=== PATIENT | female | born 1995 | race Two or more races ===

== ENCOUNTER 2018-09-01 12:58 | Emergency (ER) | payer OTHER ==
[2018-09-01] MEDS ORDERED: ONDANSETRON HCL INJ/PF 4 MG/2 ML SDV IV ONE (13:23)
--- NOTE | 2018-09-01 13:23 | ER Document Report ---
ED Medical Screen (RME) - General Chief Complaint: Abdominal Pain Stated Complaint: ABDOMINAL PAIN,NAUSEA,VOMITING Time Seen by Provider: 09/01/18 13:08 TRAVEL OUTSIDE OF THE [place] IN LAST 30 DAYS: No - HPI Notes: 09/01/18 13:22 Nausea vomiting diarrhea with upper epigastric pain - Related Data Allergies/Adverse Reactions: No Known Allergies Allergy (Verified 09/01/18 13:14) Past Medical History - Social History Frequency of alcohol use: None Drug Abuse: None Renal/ Medical History: Denies: Hx Peritoneal Dialysis Review of Systems - Review of Systems Gastrointestinal: Abdominal pain, Diarrhea, Nausea, Vomiting Physical Exam - Vital signs Vitals: Temp Pulse Resp BP Pulse Ox 99.2 F 130 H 14 125/97 H 100 09/01/18 13:07 09/01/18 13:07 09/01/18 13:07 09/01/18 13:07 09/01/18 13:07 - Respiratory Respiratory status: No respiratory distress Chest status: Nontender Breath sounds: Normal Chest palpation: Normal - Cardiovascular Rhythm: Tachycardia Course - Vital Signs Vital signs: Temp Pulse Resp BP Pulse Ox 99.2 F 128 H 14 125/97 H 100 09/01/18 13:07 09/01/18 13:18 09/01/18 13:07 09/01/18 13:07 09/01/18 13:18
[2018-09-01] MEDS: RINGERS SOLUTION,LACTATED 1,000 ML IV PRN ×2 (13:43→15:09)
[2018-09-01 14:07] LABS: APPEARANCE,URINE CLOUDY; BILIRUBIN,URINE NEGATIVE (NEGATIVE); COLOR,URINE YELLOW; GLUCOSE, URINE NEGATIVE (NEGATIVE); KETONES,URINE 80 mg/dL (NEGATIVE); LEUKOCYTE ESTERASE,URINE MODERATE (NEGATIVE); NITRITE,URINE NEGATIVE (NEGATIVE); PROTEIN,URINE NEGATIVE (NEGATIVE); URINE SPECIFIC GRAVITY 1.028
--- NOTE | 2018-09-01 14:32 | ER Document Report ---
ED General - General Chief Complaint: Abdominal Pain Stated Complaint: ABDOMINAL PAIN,NAUSEA,VOMITING Time Seen by Provider: 09/01/18 13:08 Mode of Arrival: Ambulatory Information source: Patient Notes: This is a 23-year-old female with no significant medical problems who presents to the emergency room with nausea, vomiting and abdominal pain. Patient does report subjective fever. She denies any diarrhea. She denies any vaginal discharge. TRAVEL OUTSIDE OF THE [place] IN LAST 30 DAYS: No - HPI Onset: This afternoon Onset/Duration: Gradual Quality of pain: Dull Severity: Mild Pain Level: 1 Associated symptoms: Chills, Fever, Nausea, Vomiting Exacerbated by: Denies Relieved by: Denies Similar symptoms previously: No Recently seen / treated by doctor: No - Related Data Allergies/Adverse Reactions: No Known Allergies Allergy (Verified 09/01/18 13:14) Past Medical History - General Information source: Patient - Social History Smoking Status: Never Smoker Cigarette use (# per day): No Chew tobacco use (# tins/day): No Frequency of alcohol use: None Drug Abuse: None Lives with: Family Family History: None Patient has suicidal ideation: No Patient has homicidal ideation: No - Medical History Medical History: Negative Renal/ Medical History: Denies: Hx Peritoneal Dialysis Surgical Hx: Negative Review of Systems - Review of Systems Constitutional: Chills, Fever EENT: No symptoms reported Cardiovascular: No symptoms reported Respiratory: No symptoms reported Gastrointestinal: Abdominal pain, Nausea, Vomiting Genitourinary: No symptoms reported Female Genitourinary: No symptoms reported Musculoskeletal: No symptoms reported Skin: No symptoms reported Hematologic/Lymphatic: No symptoms reported Neurological/Psychological: No symptoms reported Physical Exam - Vital signs Vitals: Temp Pulse Resp BP Pulse Ox 99.2 F 130 H 14 125/97 H 100 09/01/18 13:07 09/01/18 13:07 09/01/18 13:07 09/01/18 13:07 09/01/18 13:07 Notes: Physical exam: GENERAL: Patient is alert and oriented x3, answering questions. She does appear mildly uncomfortable. She has low-grade fever. HEAD: Atraumatic, normocephalic. EYES: Pupils equal round and reactive to light, extraocular movements intact, sclera anicteric, conjunctiva are normal. ENT: TMs normal, nares patent, oropharynx clear without exudates. Moist mucous membranes. NECK: Normal range of motion, supple without obvious mass or JVD. LUNGS: Breath sounds clear to auscultation bilaterally and equal. No wheezes rales or rhonchi. HEART: Regular rate and rhythm without murmurs, rubs or gallops. ABDOMEN: Normoactive bowel sounds. Mild tenderness to palpation the epigastrium and in the periumbilical area. He does intermittently have discomfort in the lower quadrants but it is not always reproducible. Her abdomen remains quite soft with no guarding, no rebound. No masses appreciated. EXTREMITIES: Normal range of motion, no pitting or edema. No clubbing or cyanosis. NEUROLOGICAL: Cranial nerves II through XII grossly intact. Normal speech, moving all extremities. PSYCH: Normal mood, normal affect. SKIN: Warm, Dry, normal turgor, no rashes or lesions noted. Course - Re-evaluation Re-evalutation: 09/01/18 18:53 Note: The patient's abdomen remains soft and essentially unchanged from previous. She has no rebound or guarding. Her skin is warm and I think she is got low-grade fever. She has not required any pain medicine. I discussed the results of the CAT scan with her and the fact that this is a test that is not 100% sensitive (even though we were able to visualize the appendix and it appeared normal). I will have her back tomorrow morning for repeat evaluation. In the meantime, treat with Tylenol for discomfort, Zofran for nausea. - Vital Signs Vital signs: Temp Pulse Resp BP Pulse Ox 100.1 F 110 H 18 117/67 100 09/01/18 18:39 09/01/18 18:39 09/01/18 18:39 09/01/18 18:39 09/01/18 18:39 - Laboratory Result Diagrams: 09/01/18 15:05 09/01/18 15:05 Laboratory results interpreted by me: 09/01/18 09/01/18 13:30 15:05 WBC 10.9 H Seg Neuts % (Manual) 94 H Lymphocytes % (Manual) 4 L Monocytes % (Manual) 2 L Abs Neuts (Manual) 10.2 H Abs Lymphs (Manual) 0.4 L Urine Ketones 80 H Urine Urobilinogen 2.0 H Ur Leukocyte Esterase MODERATE H Urine Ascorbic Acid 40 H - Diagnostic Test Radiology reviewed: Image reviewed, Reports reviewed - Right upper quadrant ultrasound was normal. Abdominal CT showed no obvious surgical pathology. The appendix is visualized and does appear normal. Discharge - Discharge Clinical Impression: Abdominal pain Condition: Stable Disposition: HOME, SELF-CARE Instructions: Observation for Appendicitis ([facility]) Additional Instructions: As we discussed, the ultrasound of the gallbladder looked good. The CAT scan did observe the appendix and it appeared normal at this time. That being said, you do have pain in the lower quadrants and the CT scan is not 100% sensitive. Therefore I want you to take it easy over the next day, drink fluids, can take Tylenol for pain, nausea for fever. If the pain worsens or if you not able to tolerate fluids, return to the emergency room. Otherwise, I would like you to return to the emergency room tomorrow for repeat evaluation. Forms: Return to Work
[2018-09-01 15:37] LABS: ALANINE AMINOTRANSFERASE 32 U/L (9-52); ALBUMIN 4.8 g/dL (3.5-5.0); ALKALINE PHOSPHATASE 95 U/L (38-126); ANION GAP 11 (5-19); ASPARTATE AMINO TRANSFERASE 20 U/L (14-36); BILIRUBIN,DIRECT 0.1 mg/dL (0.0-0.4); BILIRUBIN,TOTAL 0.4 mg/dL (0.2-1.3); BLOOD UREA NITROGEN 15 mg/dL (7-20); CALCIUM 9.5 mg/dL (8.4-10.2); CARBON DIOXIDE 24 mmol/L (22-30); CHLORIDE 104 mmol/L (98-107); GLUCOSE 97 mg/dL (75-110); LIPASE 32.8 U/L (23-300); POTASSIUM 4.1 mmol/L (3.6-5.0); SODIUM 139.1 mmol/L (137-145); TOTAL PROTEIN 7.6 g/dL (6.3-8.2)
[2018-09-01 15:45] LABS: HEMATOCRIT 39.8 % (36.0-47.0); HEMOGLOBIN 13.5 g/dL (12.0-15.5); MEAN CORPUSCULAR HEMOGLOBIN 29.6 pg (27.0-33.4); MEAN CORPUSCULAR VOLUME 87 fl (80-97); PLATELET COUNT 284 10^3/uL (150-450); RED BLOOD COUNT 4.58 10^6/uL (3.72-5.28); RED CELL DISTRIBUTION WIDTH 13.1 % (11.5-14.0); WHITE BLOOD COUNT 10.9 10^3/uL (4.0-10.5)
[2018-09-01 15:56] LABS: ABSOLUTE LYMPHOCYTES# (MANUAL) 0.4 10^3/uL (0.5-4.7); ABSOLUTE MONOCYTES # (MANUAL) 0.2 10^3/uL (0.1-1.4); ABSOLUTE NEUTROPHILS# (MANUAL) 10.2 10^3/uL (1.7-8.2); BASOPHILS % (MANUAL) 0 % (0-2); EOSINOPHILS % (MANUAL) 0 % (0-6); LYMPHOCYTES % (MANUAL) 4 % (13-45); MONOCYTES % (MANUAL) 2 % (3-13); SEGMENTED NEUTROPHILS % (MAN) 94 % (42-78); TOTAL CELLS COUNTED 100
[2018-09-01 15:57] LABS: OVALOCYTES SLIGHT; PLATELET COMMENT ADEQUATE; PLATELET LARGE PRESENT; POIKILOCYTOSIS SLIGHT
--- NOTE | 2018-09-01 16:32 | RADIOLOGY REPORT (SQ) ---
EXAM DESCRIPTION: U/S ABDOMEN LIMITED W/O DOP COMPLETED DATE/TIME: 09/01/2018 4:23 pm REASON FOR STUDY: abd pain r/o gb disease COMPARISON: None. TECHNIQUE: Dynamic and static grayscale images acquired of the abdomen and recorded on PACS. Additio nal selected color Doppler and spectral images recorded. LIMITATIONS: None. FINDINGS: PANCREAS: The head and tail the pancreas are obscured by overlying bowel gas. Body is unr emarkable. LIVER: No masses. Echotexture normal. LIVER VASCULATURE: Normal directional flow of the main portal vein and hepatic veins. GALLBLADDER: No stones. Normal wall thickness. No pericholecystic fluid. ULTRASOUND-DETECTED MOSQUERA'S SIGN: Negative. INTRAHEPATIC DUCTS AND COMMON DUCT: CBD and intrahepatic ducts normal caliber. No filling defects. INFERIOR VENA CAVA: Normal flow. AORTA: No aneurysm. RIGHT KIDNEY: Normal size. Normal echogenicity. No solid or suspicious masses. No hydronephrosis. No calcifications. PERITONEAL AND RIGHT PLEURAL SPACE: No ascites or effusions. OTHER: No other significant findings. IMPRESSION: NORMAL RIGHT UPPER QUADRANT ULTRASOUND. TECHNICAL DOCUMENTATION: JOB ID: [id number] [employer]- All Rights Reserved Reading location - IP/workstation name: [email or web address]
--- NOTE | 2018-09-01 17:41 | RADIOLOGY REPORT (SQ) ---
EXAM DESCRIPTION: CT ABD/PELVIS WITH IV ONLY COMPLETED DATE/TIME: 09/01/2018 5:29 pm REASON FOR STUDY: abd pain COMPARISON: None. TECHNIQUE: CT scan of the abdomen and pelvis performed using helical scanning technique with dynamic intravenous contrast injection. No oral contrast. Images reviewed with lung, soft tissue, and bone windows. Reconstructed coronal and sagittal MPR images reviewed. Delayed images for evaluation of the urinary system also acquired. All images stored on PACS. All CT scanners at this facility use dose modulation, iterative reconstruction, and/or weight based d osing when appropriate to reduce radiation dose to as low as reasonably achievable (ALARA). [facility]: Dose Right [facility]: CareDose [facility]: Dose Right [facility]: Teradose 4D [facility]: [facility] CONTRAST TYPE AND DOSE: contrast/concentration: Isovue 350.00 mg/ml; Total Contrast Delivered: 94.0 ml; Total Saline Delivered: 71.0 ml RENAL FUNCTION: None required. The patient is less than 50 years old. RADIATION DOSE: CT Rad equipment meets quality standard of care and radiation dose reduction techniq ues were employed. CTDIvol: 9.5 - 13.4 mGy. DLP: 1289 mGy-cm.. LIMITATIONS: None. FINDINGS: LOWER CHEST: No significant findings. No nodules or infiltrates. LIVER: Normal size. No masses. No dilated ducts. SPLEEN: Normal size. No focal lesions. PANCREAS: No masses. No significant calcifications. No adjacent inflammation or peripancreatic fluid collections. Pancreatic duct not dilated. GALLBLADDER: No identified stones by CT criteria. No inflammatory changes to suggest cholecystitis. ADRENAL GLANDS: No significant masses or asymmetry. RIGHT KIDNEY AND URETER: No solid masses. No significant calcifications. No hydronephrosis or hyd roureter. LEFT KIDNEY AND URETER: No solid masses. No significant calcifications. No hydronephrosis or hydr oureter. AORTA AND VESSELS: No aneurysm. No dissection. Renal arteries, SMA, celiac without stenosis. RETROPERITONEUM: No retroperitoneal adenopathy, hemorrhage or masses. BOWEL AND PERITONEAL CAVITY: No masses or inflammatory changes. No free fluid or peritoneal masses. APPENDIX: Normal. PELVIS: No mass. No free fluid. Normal bladder. ABDOMINAL WALL: No masses. No hernias. BONES: No significant or acute findings. OTHER: No other significant finding. IMPRESSION: No CT findings to explain bilateral lower quadrant abdominal pain. Normal appendix. TECHNICAL DOCUMENTATION: JOB ID: [id number] Quality ID # [id number]: Final reports with documentation of one or more dose reduction techniques (e.g., Au tomated exposure control, adjustment of the mA and/or kV according to patient size, use of iterative reconstruction technique) 2010 [employer]- All Rights Reserved Reading location - IP/workstation name: [email or web address]
[2018-09-01] MEDS ORDERED: ONDANSETRON ODT 4 MG TAB (6 TAB/ER DISP) PO PRN (18:34)
[2018-09-01] MEDS ORDERED: ACETAMINOPHEN 325 MG TABLET PO ONE (18:34)
[2018-09-01 18:44] VITALS: BP 117/67
== END 2018-09-01 18:59 | disposition home or self-care (01) ==
LOC: ER 12:58
DX: R10.30 Lower abdominal pain, unspecified (principal); R10.816 Epigastric abdominal tenderness; R10.815 Periumbilic abdominal tenderness; R11.2 Nausea with vomiting, unspecified; R50.9 Fever, unspecified
CPT/HCPCS: 99284; 96361; 96374; 36415; 87086; 83690; 84703; 85025; 80053; 81001; 83605; 76705; 74177; J2405; J7120

== ENCOUNTER 2019-06-26 09:51 | Emergency (ER) | payer MEDICAID, OTHER ==
--- NOTE | 2019-06-26 10:23 | ER Document Report ---
ED Medical Screen (RME) - General Chief Complaint: Lower Abdominal Pain Stated Complaint: LOW BACK PAIN, ABDOMINAL PAIN Time Seen by Provider: 06/26/19 10:17 Mode of Arrival: Ambulatory Information source: Patient Notes: 24-year-old female presented to ED for complaint of lower abdominal and back pain for the last 2 days. She is 11 weeks 5 days 1 para 0 no bleeding. She states she does have a tilted uterus. Spoke with ultrasound and they stated they would get her as soon as they got the person on the table off. Does have tenderness to the pelvic area she states she needs to void right now I have greeted and performed a rapid initial assessment of this patient. A comprehensive ED assessment and evaluation of the patient, analysis of test results and completion of medical decision making process will be conducted by an additional ED providers. TRAVEL OUTSIDE OF THE [place]. IN LAST 30 DAYS: No - Related Data Allergies/Adverse Reactions: No Known Allergies Allergy (Verified 09/01/18 13:14) Past Medical History Renal/ Medical History: Denies: Hx Peritoneal Dialysis Physical Exam - Vital signs Vitals: Temp Pulse Resp BP Pulse Ox 98.3 F 100 18 135/74 H 98 06/26/19 10:02 06/26/19 10:02 06/26/19 10:02 06/26/19 10:02 06/26/19 10:02 Course - Vital Signs Vital signs: Temp Pulse Resp BP Pulse Ox 98.3 F 100 18 135/74 H 98 06/26/19 10:02 06/26/19 10:02 06/26/19 10:02 06/26/19 10:02 06/26/19 10:02
[2019-06-26 12:01] LABS: ABSOLUTE EOSINOPHILS # (AUTO) 0.1 10^3/uL (0.0-0.6); ABSOLUTE LYMPHOCYTES (AUTO) 1.9 10^3/uL (0.5-4.7); ABSOLUTE MONOCYTES (AUTO) 0.5 10^3/uL (0.1-1.4); ABSOLUTE NEUT (AUTO) 6.1 10^3/uL (1.7-8.2); BASOPHILS % (AUTO) 0.3 % (0-2); EOSINOPHILS % (AUTO) 1.5 % (0-6); HEMATOCRIT 38.7 % (36.0-47.0); HEMOGLOBIN 13.4 g/dL (12.0-15.5); MEAN CORPUSCULAR HEMOGLOBIN 30.1 pg (27.0-33.4); MEAN CORPUSCULAR HGB CONC 34.5 g/dL (32.0-36.0); MEAN CORPUSCULAR VOLUME 87 fl (80-97); MONOCYTES % (AUTO) 5.3 % (3-13); PLATELET COUNT 291 10^3/uL (150-450); RED BLOOD COUNT 4.44 10^6/uL (3.72-5.28); RED CELL DISTRIBUTION WIDTH 13.9 % (11.5-14.0); SEGMENTED NEUTROPHILS % (AUTO) 70.9 % (42-78); TOTAL CELLS COUNTED % (AUTO) 100 %; WHITE BLOOD COUNT 8.6 10^3/uL (4.0-10.5)
--- NOTE | 2019-06-26 12:05 | RADIOLOGY REPORT (SQ) ---
EXAM DESCRIPTION: U/S OB TRANSVAGINAL W/O DOP COMPLETED DATE/TIME: 06/26/2019 11:44 am REASON FOR STUDY: 11 wk 5 days abdominal pain COMPARISON: None. TECHNIQUE: Transvaginal and transabdominal static and realtime grayscale images acquired of the pelv is. Additional selected spectral and color Doppler images recorded. All images stored on PACs. bHCG: Not applicable. CLINICAL DATES: 11 week 2 day. LIMITATIONS: None. FINDINGS: FETUS: Single intrauterine . ULTRASOUND EGA: 8 week 6 day. ULTRASOUND NANCY: 01/30/2020. EFW: Not applicable less than 20 weeks. CRL: 2.21 cm. FHR: No cardiac activity detected. SURVEY: No visualized anomalies. AMNIOTIC FLUID: Adequate amount. PLACENTA: Not yet developed due to early gestation. SUBCHORIONIC BLEED: No. SIZE OF BLEED: Not applicable. UTERUS: No masses. No anomalies. CERVICAL LENGTH: 3.9 cm. Closed. RIGHT ADNEXA: Normal ovary with normal vascular flow. No adnexal free fluid. Corpus Luteum measuring 1.5 cm. LEFT ADNEXA: Ovary not identified due to poor acoustical window. No adnexal free fluid. No adnexal masses. FREE FLUID: None. OTHER: No other significant finding. IMPRESSION: INTRAUTERINE . EGA 8 WEEK 6 DAY. NO CARDIAC ACTIVITY DETECTED. CONSISTENT WITH DEMISE. Trimester of : First trimester - 0 to 13 weeks. TECHNICAL DOCUMENTATION: JOB ID: [id number] [employer]- All Rights Reserved rev Reading location - IP/workstation name: [email or web address]
[2019-06-26 12:26] LABS: ALBUMIN 4.7 g/dL (3.5-5.0); ALKALINE PHOSPHATASE 68 U/L (38-126); ANION GAP 11 (5-19); ASPARTATE AMINO TRANSFERASE 18 U/L (14-36); BILIRUBIN,DIRECT 0.1 mg/dL (0.0-0.4); BILIRUBIN,TOTAL 0.4 mg/dL (0.2-1.3); BLOOD UREA NITROGEN 5 mg/dL (7-20); CALCIUM 10.2 mg/dL (8.4-10.2); CARBON DIOXIDE 22 mmol/L (22-30); CHLORIDE 106 mmol/L (98-107); GLUCOSE 86 mg/dL (75-110); POTASSIUM 3.8 mmol/L (3.6-5.0)
[2019-06-26 12:59] LABS: APPEARANCE,URINE CLEAR; BILIRUBIN,URINE NEGATIVE (NEGATIVE); COLOR,URINE STRAW; GLUCOSE, URINE NEGATIVE (NEGATIVE); KETONES,URINE NEGATIVE (NEGATIVE); PROTEIN,URINE NEGATIVE (NEGATIVE); URINE SPECIFIC GRAVITY 1.005; UROBILINOGEN,URINE NEGATIVE mg/dL (<2.0)
[2019-06-26] MEDS ORDERED: ACETAMINOPHEN 325 MG TABLET PO ONE (13:29)
--- NOTE | 2019-06-26 13:35 | ER Document Report ---
ED General - General Chief Complaint: Abdominal Pain Stated Complaint: LOW BACK PAIN, ABDOMINAL PAIN Time Seen by Provider: 06/26/19 10:17 Primary Care Provider: FER BHATT DO [Primary Care Provider] - Follow up as needed ANDRE DREW MD [ACTIVE STAFF] - Follow up tomorrow (call today for an appointment) Mode of Arrival: Ambulatory Notes: 24-year-old female approximately 11 weeks G1, P0 presents emergency department with right-sided low back pain for the past 2 days. Denies vaginal bleeding. Denies abdominal pain. Denies trauma. Denies fever vomiting diarrhea. Patient had her first [employer] appointment 2 weeks ago. She did not take anything for the pain. TRAVEL OUTSIDE OF THE [place] IN LAST 30 DAYS: No - HPI Onset: Other Onset/Duration: Persistent Quality of pain: Achy Severity: Severe Associated symptoms: None Exacerbated by: Denies Relieved by: Denies Similar symptoms previously: No Recently seen / treated by doctor: No - Related Data Allergies/Adverse Reactions: No Known Allergies Allergy (Verified 09/01/18 13:14) Past Medical History - General Information source: Patient Last Menstrual Period: April - Social History Smoking Status: Unknown if Ever Smoked Cigarette use (# per day): No Frequency of alcohol use: None Drug Abuse: None Family History: None Patient has suicidal ideation: No Patient has homicidal ideation: No - Medical History Medical History: Negative Renal/ Medical History: Denies: Hx Peritoneal Dialysis Surgical Hx: Negative Review of Systems - Review of Systems Notes: Review HPI for review of systems., All other systems negative Physical Exam - Vital signs Vitals: Temp Pulse Resp BP Pulse Ox 98.3 F 100 18 135/74 H 98 06/26/19 10:02 06/26/19 10:02 06/26/19 10:02 06/26/19 10:02 06/26/19 10:02 - Notes Notes: PHYSICAL EXAMINATION: GENERAL: Well-appearing and in no acute distress, anxious HEAD: Atraumatic, normocephalic. EYES: extraocular movements intact, sclera anicteric, conjunctiva are normal. ENT: nares patent, Moist mucous membranes. NECK: Normal range of motion, supple without lymphadenopathy LUNGS: CTAB and equal. No wheezes rales or rhonchi. HEART: Regular rate and rhythm without murmurs ABDOMEN: Soft, no tenderness. No guarding, no rebound BACK: Low right sided back pain, no vertebral tenderness good distal movement sensation no ecchymosis no erythema no warmth EXTREMITIES: Normal range of motion, NEUROLOGICAL: Cranial nerves grossly intact. PSYCH: Normal mood, normal affect. SKIN: Warm, Dry, normal turgor, no rashes or lesions noted Course - Re-evaluation Re-evalutation: 06/26/19 24-year-old female approximately 11 weeks presents emergency department with complaints of right-sided low back pain. Labs unremarkable ultrasound show s demise. Patient was instructed on these results. Dr. True Drew was contacted he is in the OR talk to the scrub nurse discussed patient situation. He advises her to follow-up in the office tomorrow morning. Patient was instructed she started having extreme abdominal pain vaginal bleeding concerns return to the emergency department immediately. She verbalized understanding to all instructions. Obstetrics Ultrasound 06/26/19 10:18 IMPRESSION: INTRAUTERINE . EGA 8 WEEK 6 DAY. NO CARDIAC ACTIVITY DETECTED. CONSISTENT WITH DEMISE. Trimester of : First trimester - 0 to 13 weeks. 06/26/19 11:45 06/26/19 11:45 MCV 87 fl (80-97) 06/26/19 11:45 MCH 30.1 pg (27.0-33.4) 06/26/19 11:45 MCHC 34.5 g/dL (32.0-36.0) 06/26/19 11:45 RDW 13.9 % (11.5-14.0) 06/26/19 11:45 Seg Neutrophils % 70.9 % (42-78) 06/26/19 11:45 Chloride 106 mmol/L (98-107) 06/26/19 11:45 Carbon Dioxide 22 mmol/L (22-30) 06/26/19 11:45 Anion Gap 11 (5-19) 06/26/19 11:45 Est GFR ( Amer) > 60 (>60) 06/26/19 11:45 Glucose 86 mg/dL (75-110) 06/26/19 11:45 Calcium 10.2 mg/dL (8.4-10.2) 06/26/19 11:45 Total Bilirubin 0.4 mg/dL (0.2-1.3) 06/26/19 11:45 AST 18 U/L (14-36) 06/26/19 11:45 Alkaline Phosphatase 68 U/L (38-126) 06/26/19 11:45 Total Protein 8.0 g/dL (6.3-8.2) 06/26/19 11:45 Albumin 4.7 g/dL (3.5-5.0) 06/26/19 11:45 Urine Color STRAW 06/26/19 12:41 Urine Appearance CLEAR 06/26/19 12:41 Urine pH 7.0 (5.0-9.0) 06/26/19 12:41 Ur Specific [employer] 1.005 06/26/19 12:41 Urine Protein NEGATIVE mg/dL (NEGATIVE) 06/26/19 12:41 Urine Glucose (UA) NEGATIVE mg/dL (NEGATIVE) 06/26/19 12:41 Urine Ketones NEGATIVE mg/dL (NEGATIVE) 06/26/19 12:41 Urine Blood NEGATIVE (NEGATIVE) 06/26/19 12:41 Blood Type A POSITIVE 06/26/19 11:45 - Vital Signs Vital signs: Temp Pulse Resp BP Pulse Ox 98.5 F 86 18 117/70 100 06/26/19 13:49 06/26/19 13:49 06/26/19 10:02 06/26/19 13:49 06/26/19 13:49 - Laboratory Result Diagrams: 06/26/19 11:45 06/26/19 11:45 Laboratory results interpreted by me: 06/26/19 11:45 BUN 5 L Creatinine 0.49 L Beta HCG, Quant 56586.00 H - Diagnostic Test Radiology reviewed: Reports reviewed - Consults dr andre drew Time consulted: 13:31 Reason for consultation: 06/26/19 demise Consulted provider: follow-up in office Discharge - Discharge Clinical Impression: Back pain, miscarriage impending, demise Condition: Stable Disposition: HOME, SELF-CARE Instructions: Miscarriage Impending ([facility]) Additional Instructions: *You have been evaluated for back pain, demise, miscarriage impending *Take Tylenol as indicated * Rest *[facility]. Call today for an appointment *Return to ED for worsening condition, changes, needs, vaginal bleeding severe pain concerns Forms: Return to Work Referrals: FER BHATT DO [Primary Care Provider] - Follow up as needed ANDRE DREW MD [ACTIVE STAFF] - Follow up tomorrow (call today for an appointment)
[2019-06-26 13:51] VITALS: BP 117/70
== END 2019-06-26 13:51 | disposition home or self-care (01) ==
LOC: ER 09:51
DX: O36.4XX0 Maternal care for intrauterine death, not applicable or unspecified (principal); O99.89 Other specified diseases and conditions complicating pregnancy, childbirth and the puerperium; M54.5 Low back pain; Z3A.00 Weeks of gestation of pregnancy not specified
CPT/HCPCS: 36415; 76817; 80053; 81001; 84702; 85025; 86900; 86901; 99284

== ENCOUNTER 2019-07-06 09:13 | Day surgery (SDC) | payer MEDICAID ==
[2019-07-06] MEDS ORDERED: FENTANYL CITRATE INJ/PF 100 MCG/2 ML AMPUL ONE (10:35)
[2019-07-06] MEDS ORDERED: ONDANSETRON HCL INJ/PF 4 MG/2 ML SDV ONE (10:35)
[2019-07-06] MEDS ORDERED: PROPOFOL INJ 200 MG/20 ML VIAL IV ONE (10:35)
[2019-07-06] MEDS ORDERED: MIDAZOLAM 2 MG/2 ML INJ ONE (10:35)
[2019-07-06] MEDS ORDERED: LIDOCAINE 2% INJ-PF (20 MG/ML) 10 ML AMPUL ONE (10:35)
[2019-07-06] MEDS ORDERED: DIPHENHYDRAMINE HCL 50 MG/ML VIAL IV PRN (11:12)
[2019-07-06] MEDS ORDERED: MEPERIDINE HCL/PF INJ 25 MG/1 ML DISP.SYRIN IV PRN (11:12)
[2019-07-06] MEDS ORDERED: ONDANSETRON HCL INJ/PF 4 MG/2 ML SDV IV PRN (11:12)
[2019-07-06] MEDS ORDERED: PROMETHAZINE HCL INJ 25 MG/1 ML VIAL IV PRN ×2 (11:12)
[2019-07-06] MEDS ORDERED: FENTANYL CITRATE INJ/PF 100 MCG/2 ML AMPUL IV PRN ×3 (11:12)
[2019-07-06] MEDS ORDERED: IBUPROFEN 800 MG TABLET PO PRN (11:25)
[2019-07-06] MEDS ORDERED: RINGERS SOLUTION,LACTATED 1,000 ML IV PRN (11:25)
[2019-07-06] MEDS ORDERED: KETOROLAC TROMETHAMINE INJ/PF 30 MG/1 ML SDV IV PRN (11:25)
[2019-07-06] MEDS ORDERED: OXYCODONE-ACETAMINOPHEN 5-325 MG TABLET PO PRN ×2 (11:25)
--- NOTE | 2019-07-06 11:29 | Operative Report ---
Operative Report DATE OF SURGERY: 07/06/19 PREOPERATIVE DIAGNOSIS: Incomplete AB POSTOPERATIVE DIAGNOSIS: Same OPERATION: Suction D&C SURGEON: ANDRE ROLLINS ANESTHESIA: GA TISSUE REMOVED OR ALTERED: Uterine contents COMPLICATIONS: None ESTIMATED BLOOD LOSS: 50 cc INTRAOPERATIVE FINDINGS: Uterus sounded to 12 cm before and 10 cm after the case PROCEDURE: Patient was taken the OR and placed in supine position. General anesthesia was induced. She is placed in dorsolithotomy position using Andre stirrups. Her perineum and vagina were prepared and draped in sterile fashion. Her bladder was drained with a red rubber catheter. A weighted speculum was placed in the vagina and the anterior lip cervix was grasped with a tenaculum. Uterus sounded to 12 cm before the case. Cervix was gently dilated. A size 8 suction curette was used to evacuate the uterine contents. A gentle curettage was performed and some retained products were still noted and a size 10 curette was used to evacuate every 8 the remainder of the uterine contents. A gentle curettage afterwards showed no retained products. Sound at the end was to 10 cm. At this point all instruments were removed. She is placed back in supine position taken recovery room in stable condition.
--- NOTE | 2019-07-06 11:31 | Discharge Summary ---
Discharge Summary (SDC) - Discharge Final Diagnosis: Incomplete AB Date of Surgery: 07/06/19 Discharge Date: 07/06/19 Condition: Good Prescriptions: Oxycodone HCl/Acetaminophen [Percocet 5-325 mg Tablet] 2 tab PO Q4HP PRN #10 tablet PRN Reason: Referrals: FER BAHTT DO [Primary Care Provider] - ANDRE ROLLINS MD [ACTIVE STAFF] - 07/18/19 2:30 pm Discharge Diet: Regular Discharge Activity: Pelvic Rest Report the Following to Your Physician Immediately: Shortness of Breath, Fever over 101 Degrees, Unusual Bleeding
[2019-07-06] MEDS ORDERED: ACETAMINOPHEN 1,000 MG/100 ML RTUPB IV ONE (11:45)
[2019-07-06] MEDS ORDERED: KETOROLAC TROMETHAMINE INJ/PF 30 MG/1 ML SDV ONE (11:45)
[2019-07-06] MEDS ORDERED: OXYCODONE-ACETAMINOPHEN 5-325 MG TABLET ONE (12:18)
[2019-07-06 16:58] VITALS: BP 104/61
== END 2019-07-06 13:15 | disposition home or self-care (01) ==
LOC: OROUT 09:13
PROVIDERS: ATTEND Obstetrics & Gynecology
DX: O03.4 Incomplete spontaneous abortion without complication (principal)
CPT/HCPCS: 88305 ×2; 59812; J2250; J3010; J1885; J2405; J2704; J3490; J0131; 1965

== ENCOUNTER 2019-09-16 09:41 | Emergency (ER) | payer MEDICAID ==
--- NOTE | 2019-09-16 09:50 | ER Document Report ---
ED Medical Screen (RME) - General Stated Complaint: VAGINAL DISCHARGE Time Seen by Provider: 09/16/19 09:48 Primary Care Provider: FER BHATT DO [Primary Care Provider] - Follow up as needed Notes: approx 6 wk female presents for vaginal spotting/brown discharge that started yesterday. Denies nausea/vomiting, abdominal pain, or fever/chills, pelvic pain. Abd soft, nontender. Pt had miscarriage last Nov. Does not currently have obgyn. I have greeted and performed a rapid initial assessment of this patient. A comprehensive ED assessment and evaluation of the patient, analysis of test results and completion of the medical decision making process with be conducted by additional ED providers. TRAVEL OUTSIDE OF THE [place] IN LAST 30 DAYS: No - Related Data Allergies/Adverse Reactions: No Known Allergies Allergy (Verified 09/16/19 09:47) Past Medical History - Past Medical History Cardiac Medical History: Denies: Hx Coronary Artery Disease, Hx Heart Attack, Hx Hypertension Pulmonary Medical History: Denies: Hx Asthma, Hx Bronchitis, Hx COPD, Hx Pneumonia Neurological Medical History: Denies: Hx Cerebrovascular Accident, Hx Seizures Renal/ Medical History: Denies: Hx Peritoneal Dialysis Musculoskeltal Medical History: Denies Hx Arthritis - Immunizations Hx Diphtheria, Pertussis, Tetanus Vaccination: Yes Physical Exam - Vital signs Vitals: Temp Pulse Resp BP Pulse Ox 97.9 F 76 18 139/70 H 100 09/16/19 09:43 09/16/19 09:43 09/16/19 09:43 09/16/19 09:43 09/16/19 09:43 Course - Vital Signs Vital signs: Temp Pulse Resp BP Pulse Ox 97.9 F 76 18 139/70 H 100 09/16/19 09:43 09/16/19 09:43 09/16/19 09:43 09/16/19 09:43 09/16/19 09:43 Doctor's Discharge - Discharge Referrals: FER BHATT DO [Primary Care Provider] - Follow up as needed
[2019-09-16 10:16] LABS: ABSOLUTE EOSINOPHILS # (AUTO) 0.2 10^3/uL (0.0-0.6); ABSOLUTE LYMPHOCYTES (AUTO) 1.7 10^3/uL (0.5-4.7); ABSOLUTE MONOCYTES (AUTO) 0.3 10^3/uL (0.1-1.4); ABSOLUTE NEUT (AUTO) 5.7 10^3/uL (1.7-8.2); BASOPHILS % (AUTO) 0.6 % (0-2); EOSINOPHILS % (AUTO) 2.1 % (0-6); HEMATOCRIT 39.8 % (36.0-47.0); HEMOGLOBIN 13.5 g/dL (12.0-15.5); LYMPHOCYTES % (AUTO) 21.1 % (13-45); MEAN CORPUSCULAR HEMOGLOBIN 29.8 pg (27.0-33.4); MEAN CORPUSCULAR HGB CONC 33.9 g/dL (32.0-36.0); MEAN CORPUSCULAR VOLUME 88 fl (80-97); MONOCYTES % (AUTO) 4.1 % (3-13); PLATELET COUNT 292 10^3/uL (150-450); RED BLOOD COUNT 4.52 10^6/uL (3.72-5.28); RED CELL DISTRIBUTION WIDTH 13.1 % (11.5-14.0); SEGMENTED NEUTROPHILS % (AUTO) 72.1 % (42-78); TOTAL CELLS COUNTED % (AUTO) 100 %
[2019-09-16 10:22] LABS: APPEARANCE,URINE SLIGHTLY-CLOUDY; BILIRUBIN,URINE NEGATIVE (NEGATIVE); COLOR,URINE YELLOW; GLUCOSE, URINE NEGATIVE (NEGATIVE); KETONES,URINE NEGATIVE (NEGATIVE); PROTEIN,URINE NEGATIVE (NEGATIVE); URINE SPECIFIC GRAVITY 1.019; UROBILINOGEN,URINE NEGATIVE mg/dL (<2.0)
[2019-09-16 10:32] LABS: ALBUMIN 4.5 g/dL (3.5-5.0); ALKALINE PHOSPHATASE 60 U/L (38-126); ANION GAP 12 (5-19); ASPARTATE AMINO TRANSFERASE 22 U/L (14-36); BILIRUBIN,DIRECT 0.3 mg/dL (0.0-0.4); BILIRUBIN,TOTAL 0.5 mg/dL (0.2-1.3); BLOOD UREA NITROGEN 9 mg/dL (7-20); CALCIUM 9.7 mg/dL (8.4-10.2); CARBON DIOXIDE 23 mmol/L (22-30); CHLORIDE 103 mmol/L (98-107); GLUCOSE 106 mg/dL (75-110); POTASSIUM 4.2 mmol/L (3.6-5.0); TOTAL PROTEIN 7.8 g/dL (6.3-8.2)
--- NOTE | 2019-09-16 10:48 | RADIOLOGY REPORT (SQ) ---
EXAM DESCRIPTION: U/S OB TRANSVAG W/DOPPLER COMPLETED DATE/TIME: 09/16/2019 10:30 am REASON FOR STUDY: 6 wk , vaginal spotting COMPARISON: None. TECHNIQUE: Transvaginal static and realtime grayscale images acquired of the pelvis. Additional lyubov cted spectral and color Doppler images recorded. All images stored on PACs. bHCG: Not provided. CLINICAL DATES: 6 week 2 day LIMITATIONS: None. FINDINGS: FETUS: Single Living intrauterine . ULTRASOUND EGA: 6 week 2 day ULTRASOUND NANCY: 05/09/2020 EFW: Not applicable less than 20 weeks. CRL: 0.5 cm FHR: 114 beats per minute. SURVEY: Too early to assess. AMNIOTIC FLUID: Adequate amount. PLACENTA: Not yet developed due to early gestation. SUBCHORIONIC BLEED: Yes SIZE OF BLEED: 1.0 x 0.6 x 1.1 cm UTERUS: No masses. No anomalies. CERVICAL LENGTH: 3.1 cm. Closed. RIGHT ADNEXA: Ovary not identified due to poor acoustical window. No adnexal free fluid. No adnexal masses. LEFT ADNEXA: Normal ovary with normal vascular flow. No adnexal free fluid. No adnexal masses. FREE FLUID: None. OTHER: No other significant finding. IMPRESSION: LIVING INTRAUTERINE . 1 CM SUBCHORIONIC HEMATOMA. EGA 6 week 2 day Trimester of : First trimester - 0 to 13 weeks. TECHNICAL DOCUMENTATION: JOB ID: [id number] 2010 [employer]- All Rights Reserved rev-12/17 Reading location - IP/workstation name: [email or web address]
--- NOTE | 2019-09-16 11:22 | ER Document Report ---
ED General - General Chief Complaint: Vag Bleeding, +preg <12wks Stated Complaint: VAGINAL DISCHARGE Time Seen by Provider: 09/16/19 09:48 Primary Care Provider: [facility] [Provider Group] - 09/18/19 FER BHATT DO [Primary Care Provider] - Follow up as needed Notes: Patient is a 24-year-old female, G2, P0 who presents the emergency department with vaginal spotting. Last menstrual cycle was August 03. She started to have some spotting yesterday. States that it was brown and denies any large clots. Patient has history of miscarriage in the past. TRAVEL OUTSIDE OF THE [place] IN LAST 30 DAYS: No - Related Data Allergies/Adverse Reactions: No Known Allergies Allergy (Verified 09/16/19 09:47) Home Medications: VITAMINS Past Medical History - Social History Smoking Status: Never Smoker Chew tobacco use (# tins/day): No Frequency of alcohol use: None Drug Abuse: None Family History: None Patient has suicidal ideation: No Patient has homicidal ideation: No - Past Medical History Cardiac Medical History: Denies: Hx Coronary Artery Disease, Hx Heart Attack, Hx Hypertension Pulmonary Medical History: Denies: Hx Asthma, Hx Bronchitis, Hx COPD, Hx Pneumonia Neurological Medical History: Denies: Hx Cerebrovascular Accident, Hx Seizures Renal/ Medical History: Denies: Hx Peritoneal Dialysis Musculoskeletal Medical History: Denies Hx Arthritis - Immunizations Hx Diphtheria, Pertussis, Tetanus Vaccination: Yes Review of Systems - Review of Systems Notes: REVIEW OF SYSTEMS: CONSTITUTIONAL : Denies recent illness. Denies recent unintentional weight loss. Denies fever, chills, or sweats. EENT: Denies eye, ear, throat, or mouth pain, discharge, or symptoms. Denies nasal or sinus congestion. CARDIOVASCULAR: Denies chest pain. RESPIRATORY: Denies shortness of breath, cough, congestion, difficulty breathing, or wheezing. GASTROINTESTINAL: Denies nausea, vomiting, and diarrhea. Denies abdominal pain. Denies constipation. GENITOURINARY: Denies difficulty urinating, burning, blood in urine, urgency or frequency. FEMALE GENITOURINARY: See HPI. MUSCULOSKELETAL: Denies neck and back pain. Denies joint pain or swelling. SKIN: Denies rash, itchiness, or lesions HEMATOLOGIC : Denies easy bruising or bleeding. LYMPHATIC: Denies swollen, painful, enlarged glands. NEUROLOGICAL: Denies no numbness or tingling denies weakness. Denies headache. Denies altered mental status. Denies alteration in speech. PSYCHIATRIC: Denies stress, anxiety, alteration in sleep patterns, or depression. All other systems reviewed and negative. Physical Exam - Vital signs Vitals: Temp Pulse Resp BP Pulse Ox 97.9 F 76 18 139/70 H 100 09/16/19 09:43 09/16/19 09:43 09/16/19 09:43 09/16/19 09:43 09/16/19 09:43 - Notes Notes: PHYSICAL EXAMINATION: GENERAL: Appears well, healthy, well-nourished, no acute distress. HEAD: Normocephalic, atraumatic. EYES: PERRL, conjunctiva normal, all extraocular movements intact, sclera nonicteric ENT: Moist mucous membranes. NECK: Supple, no noticeable swelling, redness, rash. Normal range of motion. LUNGS: Equal breath sounds bilaterally and clear to auscultation. No wheezes rales or rhonchi. CARDIOVASCULAR: S1-S2, regular rate, regular rhythm. Radial pulses 2+, normal. ABDOMEN: Normoactive bowel sounds. Soft, nontender, no guarding, no rebound tenderness, and no masses palpated. EXTREMITIES: Normal strength and range of motion, no pitting or edema. No cyanosis. NEUROLOGICAL: Moves all extremities upon command. Strength 5/5 in all extremities. PSYCH: Normal mood, normal affect. SKIN: Warm, dry. No rash, lesions, ulcerations noted. Normal skin turgor. TOP FLAVOR ATTENDANT: Small amount of old blood noted to vaginal area. Course - Re-evaluation Re-evalutation: 09/16/19 12:00 Patient's chemistries are unremarkable. Her beta hCG is 52,183, consistent with her 6-week . Urinalysis is showing a trace amount of leukocytes, but her wet prep shows 3+ epithelial cells and 3+ bacteria. She has 1+ WBCs. She will be treated with Flagyl for bacterial vaginosis. I will also empirically treat her for gonorrhea and chlamydia here in the emergency department. Per previous visits, the patient is Rh+ and RhoGam is not indicated. Has a subchor ionic hemorrhage noted. At this time the subchorionic hemorrhage is at 1 cm. There is a live intrauterine noted. She will follow-up with [facility] in regards to this visit. Instructed the patient on pelvic precautions. She is in agreement with this plan. Follow-up precautions were given. Verbal discharge instructions were given to the patient. They verbalized understanding. They are stable for discharge. - Vital Signs Vital signs: Temp Pulse Resp BP Pulse Ox 98.1 F 65 16 108/57 L 100 09/16/19 12:37 09/16/19 12:37 09/16/19 12:37 09/16/19 12:37 09/16/19 12:37 - Laboratory Result Diagrams: 09/16/19 10:02 09/16/19 10:02 Laboratory results interpreted by me: 09/16/19 09/16/19 10:02 10:02 Creatinine 0.48 L Beta HCG, Quant 14407.00 H Leukocyte Esterase Rfl TRACE H Urine Ascorbic Acid 40 H Discharge - Discharge Clinical Impression: Vaginal bleeding during , Bacterial vaginosis in Subchorionic hemorrhage in first trimester Qualifiers: Fetus number: single or unspecified fetus Qualified Code(s): O41.8X10 - Other specified disorders of amniotic fluid and membranes, first trimester, not applicable or unspecified Condition: Stable Disposition: HOME, SELF-CARE Additional Instructions: You have an overgrowth of natural vaginal bacteria, called bacterial vaginosis. You are being treated with an antibiotic called metronidazole. Do not drink alcohol while taking this medication. Complete all of the antibiotic even if your symptoms have resolved. Return for abdominal pain, vomiting, fever of greater than 101F, or any other symptoms that are worrisome to you. Please follow-up with your RIVER BOAT CAPTAIN or primary care doctor. You are seen today in the emergency department for bleeding during . At this time, there is a small bleed, called a subchorionic hemorrhage. Please make sure you are on pelvic rest. Follow-up with [facility] on Wednesday. If he they are not open on Wednesday, you can come to the outpatient lab to have your labs redrawn. Please do not place anything in your vagina. Do not lift any heavy objects. Make sure that you rest and are eating properly. Continue your vitamins. If you have a large amount of bleeding and have clots, please return to the emergency department. Prescriptions: Metronidazole [Metrogel 0.75% Vaginal Gel] 5 applic VG QHS 5 Days #5 tube Forms: Follow-Up Laboratory Testing Referrals: FER BHATT DO [Primary Care Provider] - Follow up as needed [facility] [Provider Group] - 09/18/19
[2019-09-16 11:32] LABS: BACTERIA (WET MOUNT) 3+ BACTERIA SEEN; EPITHELIALS (WET MOUNT) 3+ EPITHELIALS SEEN; RBCS (WET MOUNT) NO RBCS SEEN; T.VAGINALIS (WET MOUNT) NO TRICHOMONAS SEEN; WBCS (WET MOUNT) 1+ WBCS SEEN; YEAST (WET MOUNT) NO YEAST SEEN
[2019-09-16] MEDS ORDERED: AZITHROMYCIN 250 MG TABLET PO ONE (11:58)
[2019-09-16] MEDS ORDERED: LIDOCAINE 1% INJ-PF (10 MG/ML) 30 ML SDV INJ ONE (11:58)
[2019-09-16] MEDS ORDERED: CEFTRIAXONE INJ 250 MG VIAL IM ONE (11:58)
[2019-09-16 12:39] VITALS: BP 108/57
[2019-09-16 12:58] LABS: CHLAM PCR NOT DETECTED (NOT DETECT)
== END 2019-09-16 12:40 | disposition home or self-care (01) ==
LOC: ER 09:41
DX: O20.8 Other hemorrhage in early pregnancy (principal); O23.591 Infection of other part of genital tract in pregnancy, first trimester; B96.89 Other specified bacterial agents as the cause of diseases classified elsewhere; Z3A.01 Less than 8 weeks gestation of pregnancy; Z79.899 Other long term (current) drug therapy; Z87.59 Personal history of other complications of pregnancy, childbirth and the puerperium
CPT/HCPCS: 99284; 96372; 36415; 87086; 87210; 84702; 85025; 80053; 81001; 87491; 87591; 76817; 93976; Q0144; J3490; J0696

== ENCOUNTER → 2020-04-11 | Outpatient (CLI) | payer MEDICAID ==
--- NOTE | 2020-04-11 14:57 | RADIOLOGY REPORT (SQ) ---
EXAM DESCRIPTION: VENOUS UNILATERAL LOWER IMAGES COMPLETED DATE/TIME: 04/11/2020 2:00 pm REASON FOR STUDY: RLE PAIN M79.661 PAIN IN RIGHT LOWER LEG COMPARISON: None. TECHNIQUE: Dynamic and static levine scale and color images acquired of the right leg venous system. S elected spectral images acquired with additional compression and augmentation maneuvers. The contrala teral common femoral vein and saphenofemoral junction were also imaged. Images stored on PACS. LIMITATIONS: None. FINDINGS: COMMON FEMORAL: Normal phasicity, compression and augmentation. No visualized echogenic ma terial on levine scale. No defects on color images. FEMORAL: Normal compression and augmentation. No visualized echogenic material on levine scale. No defe cts on color images. POPLITEAL: Normal compression, augmentation. No visualized echogenic material on levine scale. No defec ts on color images. CALF VESSELS: Normal compression, augmentation. No visualized echogenic material on levine scale. No de fects on color images. GSV and SSV: Normal compression, augmentation. No visualized echogenic material on levine scale. No def ects on color images. ANY DEEP VENOUS INSUFFICIENCY: Not evaluated. ANY EVIDENCE OF POPLITEAL CYST: No. OTHER: No other significant finding. CONTRALATERAL COMMON FEMORAL VEIN AND SAPHENOFEMORAL JUNCTION: Normal phasicity, compression and augmentation. No visualized echogenic material on levine scale. No de fects on color images. IMPRESSION: NO EVIDENCE DVT OR SVT IN THE RIGHT LEG. TECHNICAL DOCUMENTATION: JOB ID: [id number] 2010 [employer]- All Rights Reserved Reading location - IP/workstation name: [email or web address]
== END ==
LOC: RAD 11:25
PROVIDERS: ATTEND Student in an Organized Health Care Education/Training Program
DX: M79.661 Pain in right lower leg (principal)
CPT/HCPCS: 93971

== ENCOUNTER 2020-04-16 21:32 | Outpatient (CLI) | payer MEDICAID ==
[2020-04-16 22:16] LABS: APPEARANCE,URINE CLEAR; BILIRUBIN,URINE NEGATIVE (NEGATIVE); COLOR,URINE STRAW; GLUCOSE, URINE NEGATIVE (NEGATIVE); KETONES,URINE NEGATIVE (NEGATIVE); LEUKOCYTE ESTERASE,URINE TRACE (NEGATIVE); NITRITE,URINE NEGATIVE (NEGATIVE); PROTEIN,URINE NEGATIVE (NEGATIVE); URINE SPECIFIC GRAVITY 1.003; UROBILINOGEN,URINE NEGATIVE mg/dL (<2.0)
[2020-04-16 22:30] LABS: URINE AMPHETAMINES SCREEN NEGATIVE; URINE BARBITURATES SCREEN NEGATIVE; URINE BENZODIAZEPINES SCREEN NEGATIVE; URINE COCAINE SCREEN NEGATIVE; URINE MARIJUANA (THC) SCREEN NEGATIVE; URINE METHADONE SCREEN NEGATIVE; URINE PHENCYCLIDINE SCREEN NEGATIVE
== END 2020-04-16 22:41 | disposition home or self-care (01) ==
LOC: LC 21:32
PROVIDERS: ATTEND Obstetrics & Gynecology
DX: O36.8130 Decreased fetal movements, third trimester, not applicable or unspecified (principal); Z3A.37 37 weeks gestation of pregnancy; Z88.0 Allergy status to penicillin
CPT/HCPCS: 59025; 80307; 81005

== ENCOUNTER 2020-04-20 09:33 | Outpatient (CLI) | payer MEDICAID ==
[2020-04-20 10:18] LABS: APPEARANCE,URINE SLIGHTLY-CLOUDY; BILIRUBIN,URINE NEGATIVE (NEGATIVE); COLOR,URINE YELLOW; GLUCOSE, URINE NEGATIVE (NEGATIVE); KETONES,URINE NEGATIVE (NEGATIVE); LEUKOCYTE ESTERASE,URINE LARGE (NEGATIVE); NITRITE,URINE NEGATIVE (NEGATIVE); PROTEIN,URINE NEGATIVE (NEGATIVE); URINE SPECIFIC GRAVITY 1.005; UROBILINOGEN,URINE NEGATIVE mg/dL (<2.0)
[2020-04-20 10:33] LABS: URINE AMPHETAMINES SCREEN NEGATIVE; URINE BARBITURATES SCREEN NEGATIVE; URINE BENZODIAZEPINES SCREEN NEGATIVE; URINE COCAINE SCREEN NEGATIVE; URINE MARIJUANA (THC) SCREEN NEGATIVE; URINE METHADONE SCREEN NEGATIVE; URINE PHENCYCLIDINE SCREEN NEGATIVE
--- NOTE | 2020-04-20 11:26 | Non Stress Test Report ---
Non Stress Test Datetime Report Generated by CPN: 04/20/2020 11:26 DEMOGRAPHIC Test Number: 2 EGA NST: 37.2 INDICATION Indication for Study (NST) Other: Labor check MONITORING Monitor Explained: Monitor Explained; Test Explained Time on Monitor: 04/20/2020 10:05 Time off Monitor: 04/20/2020 10:53 NST Duration: 48 NST INTERVENTIONS NST Interventions: PO Hydration; Reposition Patient Physician Notified NST: Dr Mathew BABY A Movement : Present Contraction Frequency : irregular FHR Baseline : 140 Accelerations : 15X15 Decelerations : None Variability : Moderate 6-25bpm NST Review: Meets Criteria for Reactive NST NST Review and Verified By : TMartin,RN NST Results: Reactive NST REPORT Report Trigger: Send Report
== END 2020-04-20 10:59 | disposition home or self-care (01) ==
LOC: LC 09:33
PROVIDERS: ATTEND Obstetrics & Gynecology
DX: O42.92 Full-term premature rupture of membranes, unspecified as to length of time between rupture and onset of labor (principal); Z3A.37 37 weeks gestation of pregnancy
CPT/HCPCS: 59025; 80307; 81005; 84112

== ENCOUNTER 2020-05-09 00:10 | Outpatient (CLI) | payer MEDICAID ==
[2020-05-09 00:44] LABS: APPEARANCE,URINE CLEAR; BILIRUBIN,URINE NEGATIVE (NEGATIVE); COLOR,URINE STRAW; GLUCOSE, URINE NEGATIVE (NEGATIVE); KETONES,URINE TRACE mg/dL (NEGATIVE); LEUKOCYTE ESTERASE,URINE TRACE (NEGATIVE); NITRITE,URINE NEGATIVE (NEGATIVE); PROTEIN,URINE NEGATIVE (NEGATIVE); URINE SPECIFIC GRAVITY 1.004; UROBILINOGEN,URINE NEGATIVE mg/dL (<2.0)
[2020-05-09] MEDS ORDERED: HYDROXYZINE PAMOATE 50 MG CAPSULE PO ONE (01:51)
[2020-05-09] MEDS: HYDROXYZINE PAMOATE 50 MG CAPSULE ONE (02:01)
[2020-05-09 02:08] LABS: URINE AMPHETAMINES SCREEN NEGATIVE; URINE BARBITURATES SCREEN NEGATIVE; URINE BENZODIAZEPINES SCREEN NEGATIVE; URINE COCAINE SCREEN NEGATIVE; URINE MARIJUANA (THC) SCREEN NEGATIVE; URINE METHADONE SCREEN NEGATIVE; URINE PHENCYCLIDINE SCREEN NEGATIVE
--- NOTE | 2020-05-09 02:17 | Non Stress Test Report ---
Non Stress Test Datetime Report Generated by CPN: 05/09/2020 02:17 DEMOGRAPHIC EGA NST: 40.0 INDICATION Indication for Study (NST) Other: Gestational age greater than 32 weeks VITAL SIGNS Temperature - NST: 98.9 Pulse - NST: 61 RESP - NST: 17 NBPSYS NST: 145 NBPDIA NST: 73 URINE RESULTS Urine Protein, NST: Negative Urine Ketones - NST: Positive Urine Glucose - NST: Negative Urine Blood - NST: Negative MONITORING Monitor Explained: Monitor Explained; Test Explained; Patient Verbalized Understanding Time on Monitor: 05/09/2020 00:23 Time off Monitor: 05/09/2020 01:55 NST Duration: 92 NST INTERVENTIONS NST Interventions: PO Hydration; Meal Given BABY A: [id number] BABY A Movement : Present Contraction Frequency : 2-5 FHR Baseline : 120 Accelerations : 15X15 Decelerations : None Variability : Moderate 6-25bpm NST Review: Meets Criteria for Reactive NST NST Review and Verified By : E. Jilek RN NST Results: Reactive NST REPORT Report Trigger: Send Report
== END 2020-05-09 02:06 | disposition home or self-care (01) ==
LOC: LC 00:10
PROVIDERS: ATTEND Obstetrics & Gynecology
DX: O47.1 False labor at or after 37 completed weeks of gestation (principal); Z3A.40 40 weeks gestation of pregnancy; Z88.0 Allergy status to penicillin
CPT/HCPCS: 59025; 81005; 80307; J3490

== ENCOUNTER 2020-05-09 09:20 | Inpatient (IN) | payer MEDICAID ==
[2020-05-09 10:09] LABS: APPEARANCE,URINE CLEAR; BILIRUBIN,URINE NEGATIVE (NEGATIVE); COLOR,URINE YELLOW; GLUCOSE, URINE NEGATIVE (NEGATIVE); KETONES,URINE NEGATIVE (NEGATIVE); LEUKOCYTE ESTERASE,URINE NEGATIVE (NEGATIVE); NITRITE,URINE NEGATIVE (NEGATIVE); PROTEIN,URINE NEGATIVE (NEGATIVE); URINE SPECIFIC GRAVITY 1.008; UROBILINOGEN,URINE NEGATIVE mg/dL (<2.0)
[2020-05-09] MEDS ORDERED: RINGERS SOLUTION,LACTATED 1,000 ML IV PRN (10:24)
[2020-05-09] MEDS ORDERED: OXYTOCIN/0.9 % SODIUM CHLORIDE 30 UNIT/500 ML RTUINJ ONE ×2 (10:27→19:38)
[2020-05-09] MEDS ORDERED: MISOPROSTOL 0.2 MG TABLET ONE (10:27)
[2020-05-09] MEDS ORDERED: LIDOCAINE 1% INJ-PF (10 MG/ML) 30 ML SDV ONE (10:27)
[2020-05-09] MEDS ORDERED: OXYTOCIN 10 UNIT/ML VIAL ONE (10:27)
[2020-05-09 10:29] LABS: URINE AMPHETAMINES SCREEN NEGATIVE; URINE BARBITURATES SCREEN NEGATIVE; URINE BENZODIAZEPINES SCREEN NEGATIVE; URINE COCAINE SCREEN NEGATIVE; URINE MARIJUANA (THC) SCREEN NEGATIVE; URINE METHADONE SCREEN NEGATIVE; URINE PHENCYCLIDINE SCREEN NEGATIVE
--- NOTE | 2020-05-09 11:13 | Admission Physical ---
Datetime Report Generated by CPN: 05/09/2020 11:13 CURRENT ADMISSION Chief Complaint: Uterine Contractions Indication for Induction: Not Applicable Admit Impression : Term, Intrauterine ; Active Labor Admit Plan: Admit to Unit; Initiate Labor Protocol ALLERGIES Medication Allergies: No Medication Allergies: Penicillins/MD (05/09/2020) Latex: No Latex Allergies (Annotations: Data stored by [facility] on behalf of user) Food Allergies: None Environmental Allergies: None OBSTETRICAL HISTORY EDC: 05/09/2020 00:00 : 2 Para: 0 Term: 0 : 0 SAB: 1 IAB: 0 Ectopic: 0 Livin Cesareans: 0 VBACs: 0 Multiple Births: 0 Gestational Diabetes: No Rh Sensitization: No Incompetent Cervix: No BLANCA: No Infertility: No ART Treatment: No Uterine Anomaly: No IUGR: No Hx Previous C/S: No Macrosomia: No Hx Loss/Stillborn: No PIH: No Hx : No Placenta Previa/Abruption: No Depression/PP Depression: No PTL/PROM: No Post Hemorrhage: No Current Procedures: Ultrasound; NST Obstetrical History Comments: G1- SAB G2- current SEE RECORDS Alcohol: No Marijuana : No Cocaine: No Other Illicit Drugs: No Cigarettes: Never Smoker. [id number] MEDICAL HISTORY Diabetes: No Blood Transfusion: No Pulmonary Disease (Asthma, TB): No Breast Disease: No Hypertension: No Butcher Apprentice Surgery: No Heart Disease: No Hosp/Surgery: Yes Autoimmune Disorder: No Anesthetic Complications: No Kidney Disease: No Abnormal Pap Smear: No Neuro/Epilepsy: No Psychiatric Disorders: Yes Other Medical Diseases: No Hepatitis/Liver Disease: No Significant Family History: No Varicosities/Phlebitis: No Trauma/Violence : No Thyroid Dysfunction: No Medical History Comments: anxiety - regularly on medication, stopped with positive test.; D_C 2019 INFECTIOUS HISTORY Gonorrhea: No Genital Herpes: No Chlamydia: No Syphilis: No HIV/AIDS Exposure: No HPV: No PHYSICAL EXAM General: Normal HEENT: Normal Thyroid: Deferred Heart: Normal Breast: Deferred Back: Normal Abdomen: Normal Genitourinary Exam: Deferred Extremities: Normal DTRs: Normal Pelvic Type: Adequate Vital Signs: Reviewed; Within Normal Limits VAGINAL EXAM Dilatation: 3 Effacement: 90 Station: -2 MEMBRANES Membranes: Intact FETUS A EGA: 40.0 Monitoring: External US FHR- Baseline: 135 Variability: Moderate 6-25bpm Accelerations: 15X15 Decelerations: None FHR Category: Category I Presentation: Vertex Admit Comment: Donor sperm records available on chart Sono 05/02/2020--vertex; niharika 15.4 cm; EFW-7lbs 8oz Plan pain management Anticipate PLANS FOR LABOR AND DELIVERY Labor and Delivery: None Pain Management: Epidural Feeding Preference: Breast Benefit of Breast Feed Discussed: Yes Circumcision: Yes INFORMED CONSENT Assignment: Amy Mathew MD Signature: with User ID: Papo : with User ID: [email or web address] : I personally evaluated and examined the patient in conjunction with the MLP and agree with the assessment, treatment plan and disposition.
[2020-05-09 11:16] LABS: HEMATOCRIT 37.8 % (36.0-47.0); HEMOGLOBIN 13.4 g/dL (12.0-15.5); MEAN CORPUSCULAR HGB CONC 35.5 g/dL (32.0-36.0); MEAN CORPUSCULAR VOLUME 88 fl (80-97); PLATELET COUNT 207 10^3/uL (150-450); RED BLOOD COUNT 4.32 10^6/uL (3.72-5.28); WHITE BLOOD COUNT 10.9 10^3/uL (4.0-10.5)
[2020-05-09] MEDS ORDERED: EPHEDRINE SULFATE INJ 50 MG/1 ML AMPULE ONE (12:54)
[2020-05-09] MEDS ORDERED: ROPIVACAINE HCL 0.2% INJ/PF (2 MG/ML) 20 ML SDV ONE (12:54)
[2020-05-09] MEDS ORDERED: FENTANYL/BUPIVACAINE/NS/PF 300 MCG/150 ML RTUINJ EPI ONE (12:54)
--- NOTE | 2020-05-09 14:17 | L&D Progress Notes ---
PROGRESS NOTES Datetime Report Generated by CPN: 05/09/2020 14:17 PROGRESS NOTE Impression: Reassuring Heart Rate Procedures: Artificial ROM; Sterile Vag Exam Plan: Continue Present Management; Anticipate Vaginal Delivery Vital Signs : Reviewed; Within Normal Limits Comment: SVE as above. AROM with clear fluid. Will consider augmentation if no cervical progress. VAGINAL EXAM Dilatation: 4 Effacement: 90 Station: -2 LAST VAGINAL EXAM-NURSING Nursing Exam Dilitation: 3.5 Nursing Exam Effacement: 90 Nursing Exam Station: -2 Nursing Exam Contractions: Abdomen soft and nontender. MEMBRANES Membranes: Ruptured Amniotic Fluid Color: Clear FETUS A FHR - Baseline: 135 Monitoring: External US Variability: Moderate 6-25bpm Accelerations: 15X15 Decelerations: None FHR Category: Category I : 40.0 Presentation: Vertex SIGNATURE SIGNATURE: [id number];[id number] Assignment: Amy Mathew MD Signature: with User ID: [email or web address] : with User ID: [email or web address] : I personally evaluated and examined the patient in conjunction with the MLP and agree with the assessment, treatment plan and disposition.
--- NOTE | 2020-05-09 16:42 | L&D Progress Notes ---
PROGRESS NOTES Datetime Report Generated by CPN: 05/09/2020 16:41 PROGRESS NOTE Impression: Reassuring Heart Rate Procedures: Artificial ROM; Sterile Vag Exam Plan: Continue Present Management Vital Signs : Reviewed; Within Normal Limits Comment: No cervical change since last check. SVE with AROM with clear fluid. Will monitor for change, if none, will begin augmentation with Pitocin. VAGINAL EXAM Dilatation: 6 Effacement: 100 Station: 0 LAST VAGINAL EXAM-NURSING Nursing Exam Dilitation: 6.0 Nursing Exam Effacement: 100 Nursing Exam Station: -1 Nursing Exam Contractions: toco adjusted, unable to get contractions on toco MEMBRANES Membranes: Ruptured Amniotic Fluid Color: Clear FETUS A FHR - Baseline: 120 Monitoring: External US Variability: Moderate 6-25bpm Accelerations: 15X15 Decelerations: None FHR Category: Category I : 40.0 Presentation: Vertex SIGNATURE SIGNATURE: [id number] Assignment: Amy Mathew MD Signature: with User ID: [email or web address] : with User ID: [email or web address] : I personally evaluated and examined the patient in conjunction with the MLP and agree with the assessment, treatment plan and disposition.
--- NOTE | 2020-05-09 21:36 | Delivery Summary ---
Del Sum A-C Datetime Report Generated by CPN: 05/09/2020 21:36 DELIVERY PERSONNEL DELIVERY PERSONNEL: [id number] Delivery Doctor:: Amy Mathew MD Labor and Delivery Nurse:: Raissa Partida RN Labor and Delivery Nurse:: Cielo Peña RN Dealer Sales Manager/OVEN LOADER: Belinda Villareal, KEY ACCOUNT MANAGER Dealer Sales Manager/OVEN LOADER: Qian Lopez, ST MATERNAL INFORMATION Delivery Anesthesia: Epidural Medications After Delivery: Pitocin Drip 20 Units/1000ml NSS; Cytotec 1000mcg Per Rectum/Vagina Delivery QBL: 150 Maternal Complications: None Provider Comments: Called to patients bedside as she was complete and +2. Pushed for approximately 1.5 hours and delivered a viable male infant. Nuchal x1 noted, too tight to reduce. After delivery of the head, the shoulders and rest of the body delivered easily. Infant was nasal and orally suctioned then cord was doubly clamped and cut. handed of to RN awaiting for further care. Both mother and stable. LABOR SUMMARY EDC: 05/09/2020 00:00 No. Babies in Womb: 1 Attempted: No Labor Anesthesia: Epidural LABOR INFORMATION Reason for Induction: Not Applicable Onset of Labor: 05/09/2020 01:00 Complete Dilatation: 05/09/2020 16:45 Oxytocin: Augmentation Group B Beta Strep: negative Steroids Given: None Reason Steroids Not Administered: Not Applicable MEMBRANES Membranes Rupture Method: Artificial Rupture of Membranes: 05/09/2020 14:08 Length of Rupture (hr): 5.43 Amniotic Fluid Color: Clear Amniotic Fluid Amount: Small Amniotic Fluid Odor: Normal STAGES OF LABOR Stage 1 hr: 15 Stage 1 min: 45 Stage 2 hr: 2 Stage 2 min: 49 Stage 3 hr: 0 Stage 3 min: 5 Total Time in Labor hr: 18 Total Time in Labor min: 39 VAGINAL DELIVERY Episiotomy: None Laceration #1: Perineal; Vaginal Laceration Extension #1: Second Degree Laceration Repair: Yes Laceration Repair Note: Repaired with 2-0 chromic in a layered fashion Sponge Count Correct: N/A Sharps Count Correct: Yes CSECTION DELIVERY Primary Indication: N/A Secondary Indication: N/A BABY A INFORMATION Infant Delivery Date/Time: 05/09/2020 19:34 Method of Delivery: Vaginal Born in Route : No : N/A Forceps: N/A Vacuum Extraction: N/A Shoulder Dystocia : No PRESENTATION/POSITION BABY A Presentation: Cephalic Cephalic Presentation: Vertex Vertex Position: Left Occipital Anterior Breech Presentation: N/A PLACENTA INFORMATION BABY A Placenta Delivery Time : 05/09/2020 19:39 Placenta Method of Delivery: Spontaneous Placenta Status: Delivered SCORES BABY A Heart Rate 1 min: >100 bpm Resp Effort 1 min: Slow, Irregular Reflex Irritability 1 min: Cough or Sneeze or Pulls Away Muscle Tone 1 min: Some Flexion of Extremities Color 1 min: Blue/Pale Resuscitation Effort 1 min: Tactile Stimulation SCORE 1 MIN: 6 Heart Rate 5 min: >100 bpm Resp Effort 5 min: Slow, Irregular Reflex Irritability 5 min: Cough or Sneeze or Pulls Away Muscle Tone 5 min: Some Flexion of Extremities Color 5 min: Completely [place] SCORE 5 MIN: 8 INFORMATION BABY A Gestational Age at Delivery: 40.0 Gestational Status: Full Term- 39- 40.6 Weeks Outcome : Liveborn Infant Condition : Stable Sex: Male IDENTIFICATION BABY A Infant Verification Date/Time: 05/09/2020 20:05 ID Band Number: [id number] Mother's Name Verified: Yes RN Verifying : FÉLIX Stanford, FÉLIX WEIGHT/LENGTH BABY A Infant Birthweight (gm): 3270 Weight (lb): 7 Weight (oz): 3 Infant Length (in): 20.50 (Annotations: Data stored by [facility] on behalf of user) Length (cm): 52.07 CORD INFORMATION BABY A No. Cord Vessels: 3 Nuchal Cord : N/A Cord Blood Taken: Yes-For Storage (Mom's Blood type +) (Annotations: Data stored by CPN on behalf of user) Infant Suction: Mouth; Nose ASSESSMENT BABY A Skin to Skin: No Warehouse Supervisor 3Rd Shift/ALS Called : No BABY B INFORMATION : N/A SIGNATURES Signature: with User ID: [email or web address] : with User ID: [email or web address] : I personally evaluated and examined the patient in conjunction with the MLP and agree with the assessment, treatment plan and disposition.
--- NOTE | 2020-05-09 21:36 | Warning Signs in Babies ---
VOD Warning Signs Datetime Report Generated by [facility]: 05/09/2020 21:36 VOD#608 -Warning Signs in Babies: Needs to be viewed. (04/16/2020 21:34:Raissa Partida RN)
--- NOTE | 2020-05-09 21:36 | Birth Certificate Data ---
Cert Data Datetime Report Generated by CPN: 05/09/2020 21:36 CERTIFICATE DATA 47a. Care: Yes (04/16/2020 21:34:Phoebe Ramirez RN) 47b. Date of First Visit: 10/10/2019 00:00 (04/16/2020 21:34:Jennifer Shearer RN) 47c. Date of Last Visit: 05/09/2020 00:00 (04/16/2020 21:34:Jennifer Shearer RN) 47d. Number of Visits: 11 (04/16/2020 21:34:Jennifer Shearer RN) 48a. Number of Prev Live Births: 0 (04/16/2020 21:34:Phoebe Ramirez RN) 48b. Now Livin (04/16/2020 21:34:Phoebe Ramirez RN) 48c. Live Births Now : 0 (04/16/2020 21:34:QS system process) 48e. Losses: 1 (04/16/2020 21:34:Phoebe Ramirez RN) 48f. Date of Last Preg Loss: 07/03/2019 00:00 (Annotations: Data stored by [facility] on behalf of user) (04/16/2020 21:34:Angy Pulliam RN) RISK FACTORS IN THIS 49a. Diabetes: No (04/16/2020 21:34:Angy Pulliam RN) 49b. Hypertension: No (04/16/2020 21:34:Angy Pulliam RN) 49c. Previous Births: 0 (04/16/2020 21:34:Phoebe Ramirez RN) 49d. Stillborns: No (04/16/2020 21:34:Angy Pulliam RN) 49d. IUGR: No (04/16/2020 21:34:Angy Pulliam RN) 49e. Infertility Treatment: No (04/16/2020 21:34:Angy Pulliam RN) 49f. Previous Cesareans: 0 (04/16/2020 21:34:Phoebe Ramirez RN) Mother's Height 50b. Height Inches: 66 (05/09/2020 09:38:QS system process) Mother's Weight 51a. Pre- Weight (lbs): 177 (04/16/2020 21:34:Phoebe Ramirez RN) 51b. Weight at Delivery (lbs): 205 (05/09/2020 09:38:QS system process) Infections Present/Treated 53a. Gonorrhea: No (04/16/2020 21:34:Angy Pulliam RN) Results this Hospital Visit : Negative (04/16/2020 21:34:Angy Pulliam RN) 53b. Syphilis: No (04/16/2020 21:34:Angy Pulliam RN) 53c. Chlamydia: No (04/16/2020 21:34:Angy Pulliam RN) Results this Hospital Visit: Negative (04/16/2020 21:34:Angy Pulliam RN) Results this Hospital Visit: Negative (04/16/2020 21:34:Jennifer Shearer RN) 53e. Hepatitis C: Negative (04/16/2020 21:34:Jennifer Shearer RN) 53h. Mother Tested for HBsAG: Yes (04/16/2020 21:34:Jennifer Shearer RN) 53i. Date Tested: 10/10/2019 00:00 (04/16/2020 21:34:Jennifer Shearer RN) 53j. Test Result: Negative (04/16/2020 21:34:Jennifer Shearer RN) Obstetric Procedures 54a, b, c. Obstetric Procedures: Ultrasound; NST (04/16/2020 21:34:Angy Pulliam RN) Cigarette Smoking Cigarette Smoking: Never Smoker. [id number] (04/16/2020 21:34:Angy Pulliam RN) 55a. 3 Months Before Preg - Ci (04/16/2020 21:34:Angel Menezes RN) 55a. Packs: 0 (04/16/2020 21:34:Jennifer Shearer RN) 55b. 1st Trimester of Preg- Ci (04/16/2020 21:34:Angel Menezes RN) 55b. Packs: 0 (04/16/2020 21:34:Jennifer Shearer RN) 55c. 2nd Trimester of Preg- Ci (04/16/2020 21:34:Angel Menezes RN) 55c. Packs: 0 (04/16/2020 21:34:Jennifer hSearer RN) 55d. 3rd Trimester of Preg- Ci (04/16/2020 21:34:Angel Menezes RN) 55d. Packs: 0 (04/16/2020 21:34:Jennifer Shearer RN) Onset of Labor 56a. PROM >12 Hrs: 5.43 (04/16/2020 21:34:QS system process) 56b. Precipitous Labor <3 Hrs: 18 (05/09/2020 09:30:QS system process) 56c. Prolonged Labor > 20 Hrs: 18 (05/09/2020 09:30:QS system process) 57a. Induction of Labor: Augmentation (04/16/2020 21:34:Raissa Partida RN) 57c. Non-Vertex Presentation A: Vertex (04/16/2020 21:34:SANDRA Felder) 57d. Steroids - Lung Mat: None (04/16/2020 21:34:SANDRA Cast) 57d. Steroids - Lung Mat: Not Applicable (04/16/2020 21:34:SANDRA Cast) 57f. Mat Ch[place] or Temp >100.4: 98.9 (04/16/2020 21:34:Raissa Partida RN) 57g. Moderate/Heavy Meconium: Clear (05/09/2020 14:08:Candi Garber RN) 57h. Intolerance of Labor: N/A (04/16/2020 21:34:Raissa Partida RN) : N/A (04/16/2020 21:34:Raissa Partida RN) 57i. Epidural/Spinal Anesthesia: Epidural (04/16/2020 21:34:Raissa Partida RN) Method of Delivery 58a. Forceps - Unsuccessful A: N/A (04/16/2020 21:34:SANDRA Felder) 58b. Vacuum - Unsuccessful A: N/A (04/16/2020 21:34:SANDRA Felder) 58c. Presentation at 58c. Presentation at - A : Vertex (04/16/2020 21:34:[facility], [facility]) 58c. Presentation at - A : N/A (04/16/2020 21:34:[facility], [facility]) 58c. Presentation at - A : Cephalic (04/16/2020 21:34:[facility], [facility]) Final Route and Method of Del 58d. Baby A Route/Delivery: Vaginal (04/16/2020 21:34:[facility], [facility]) 58e. Trial of Labor Attempted: No (04/16/2020 21:34:Raissa Partida RN) 58e. Trial of Labor Attempted A: N/A (04/16/2020 21:34:[facility], [facility]) 58e. Trial of Labor Attempted B: N/A (04/16/2020 21:34:Raissa Partida RN) Maternal Morbidity 59b. 3rd or 4th Degree Lacs: Perineal; Vaginal (04/16/2020 21:34:Raissa Partida RN) 59b. 3rd or 4th Degree Lacs: Second Degree (04/16/2020 21:34:Raissa Partida RN) Birthweight Baby A: 3270 (04/16/2020 21:34:Misty Maldonado RN) 60a. Pounds : 7 (04/16/2020 21:34:QS system process) 60b. Ounces: 3 (04/16/2020 21:34:QS system process) 61. GA at Delivery Baby A: 40.0 (04/16/2020 21:34:Amy Mathew MD) : Full Term- 39- 40.6 Weeks (04/16/2020 21:34:QS system process) 62a. 5 Minute Baby A: 8 (04/16/2020 21:34:QS system process)
[2020-05-09] MEDS ORDERED: IBUPROFEN 800 MG TABLET ONE (22:02)
[2020-05-09] MEDS ORDERED: BENZOCAINE/MENTHOL AEROSOL SPRAY 56 ML ONE (22:02)
[2020-05-09] MEDS ORDERED: MEASLES,MUMPS&RUBELLA VACC/PF 0.5 ML VIAL SUBCUT PRN (22:12)
[2020-05-09] MEDS ORDERED: ZOLPIDEM TARTRATE 5 MG TABLET PO PRN (22:12)
[2020-05-09] MEDS ORDERED: ACETAMINOPHEN 650 MG SUPP.RECT PR PRN (22:12)
[2020-05-09] MEDS ORDERED: GLYCERIN/WITCH HAZEL LEAF 1 EACH MED..WIPE TP PRN (22:12)
[2020-05-09] MEDS ORDERED: DIBUCAINE 1% OINTMENT 28 GM TP PRN (22:12)
[2020-05-09] MEDS ORDERED: PROMETHAZINE HCL 25 MG SUPP.RECT PR PRN (22:12)
[2020-05-09] MEDS ORDERED: ACETAMINOPHEN WITH CODEINE #3 TABLET PO PRN (22:12)
[2020-05-09] MEDS ORDERED: PSEUDOEPHEDRINE HCL 30 MG TABLET PO PRN (22:12)
[2020-05-09] MEDS ORDERED: DIPH/PERTUSS(ACELL)/TETANUS VAC/PF 0.5 ML SYR (>=10YO) IM PRN (22:12)
[2020-05-09] MEDS ORDERED: DIPHENHYDRAMINE HCL 25 MG CAPSULE PO PRN (22:12)
[2020-05-09] MEDS ORDERED: MAGNESIUM HYDROXIDE SUSP 30 ML UDCUP PO PRN (22:12)
[2020-05-09] MEDS ORDERED: PROMETHAZINE HCL INJ 25 MG/1 ML VIAL IV PRN (22:12)
[2020-05-09] MEDS ORDERED: PROMETHAZINE HCL 25 MG TABLET PO PRN (22:12)
[2020-05-09] MEDS ORDERED: NA PHOS,M-B/NA PHOS,DI-BA (ADULT) 133 ML ENEMA PR PRN (22:12)
[2020-05-09] MEDS: IBUPROFEN 800 MG TABLET PO SCH (22:41)
[2020-05-09] MEDS: BENZOCAINE/MENTHOL AEROSOL SPRAY 56 ML TOP PRN (22:42)
[2020-05-10] MEDS: ACETAMINOPHEN WITH CODEINE #3 TABLET PO PRN ×4 (01:41→22:32)
[2020-05-10] MEDS: FAMOTIDINE 20 MG TABLET PO SCH ×3 (05:25→21:21)
[2020-05-10] MEDS: IBUPROFEN 800 MG TABLET PO SCH ×3 (06:46→21:21)
[2020-05-10] MEDS: DOCUSATE SODIUM 100 MG CAPSULE PO SCH ×2 (10:16→17:47)
[2020-05-10] MEDS: SENNOSIDES/DOCUSATE 8.6-50 MG 1 EACH TABLET PO SCH (10:16)
[2020-05-10] MEDS: FERROUS SULFATE 325 MG TABLET PO SCH ×2 (10:16→17:47)
[2020-05-10] MEDS: PRENATAL VITAMIN W DHA CAPSULE PO SCH (10:16)
--- NOTE | 2020-05-10 12:24 | PDOC PROGRESS REPORT ---
Subjective-OB Progress Note for:: 05/10/20 Subjective: Pt doing well, no concerns. She reports light bleeding, reg diet and voiding w/o difficulty. Physical Exam (OB) Vital Signs: Temp Pulse Resp BP Pulse Ox 97.8 F 66 16 111/56 L 98 05/10/20 08:39 05/10/20 08:39 05/10/20 08:39 05/10/20 08:39 05/10/20 08:39 Intake & Output 05/09/20 05/10/20 05/11/20 06:59 06:59 06:59 Intake Total 1000 120 Balance 1000 120 Weight 92.8 kg - Maternal Morbidity 59. Maternal Morbidity (serious complications experinced by the mother associated with labor and delivery: None of the above - Lochia Lochia Amount: Small 10-25 ml Lochia Color: Rubra/Red - Abdomen Description: Soft Fundal Description: Firm, Midline Fundal Height: u/u - u/2 Objective-Diagnostic Laboratory: 05/09/20 11:01 Assessment and Plan(PN) - Assessment and Plan (1) (normal spontaneous vaginal delivery) Is this a current diagnosis for this admission?: Yes (2) Normal course Is this a current diagnosis for this admission?: Yes (3) Laceration, obstetrical, second degree Is this a current diagnosis for this admission?: Yes - Time Spent with Patient Time with patient: Less than 15 minutes Medications reviewed and adjusted accordingly: Yes - Disposition Anticipated Discharge Disposition: Home, Self Care Anticipated Discharge Timeframe: within 48 hours
[2020-05-10] MEDS: BENZOCAINE/MENTHOL AEROSOL SPRAY 56 ML TOP PRN (21:21)
[2020-05-11] MEDS: IBUPROFEN 800 MG TABLET PO SCH (05:19)
[2020-05-11] MEDS: ACETAMINOPHEN WITH CODEINE #3 TABLET PO PRN (08:46)
--- NOTE | 2020-05-11 09:04 | PDOC DISCHARGE SUMMARY ---
Impression - Admit/DC Date/PCP Admission Date/Primary Care Provider: 05/09/20 10:10 KAZ COMER MD Discharge Date: 05/11/20 - Discharge Diagnosis (1) (normal spontaneous vaginal delivery) Is this a current diagnosis for this admission?: Yes (2) Normal course Is this a current diagnosis for this admission?: Yes (3) Laceration, obstetrical, second degree Is this a current diagnosis for this admission?: Yes - Additional Information Resuscitation Status: Full Code Discharge Diet: Regular Discharge Activity: Balance Activity w/Rest, Pelvic Rest Referrals: KAZ COMER MD [Primary Care Provider] - Prescriptions: Ibuprofen [Motrin 800 mg Tablet] 800 mg PO Q8HP PRN #60 tablet PRN Reason: Home Medications: Prenat 115/Iron Fum/Folic/Dss [ 19 Tablet] 1 each PO DAILY 07/06/19 Ibuprofen [Motrin 800 mg Tablet] 800 mg PO Q8HP PRN #60 tablet 05/11/20 HPI Gestational Age: 40.0 Reason(s) for Admission: Onset of Labor Procedures: NST Intrapartum Procedure(s): Spontaneous Vaginal Delivery Complication(s): Laceration-Vaginal, Laceration-Perineal Laceration-Degree: 2nd Hospital Course 59. Maternal Morbidity (serious complications experinced by the mother associated with labor and delivery: None of the above Results Laboratory Results: WBC 10.9 10^3/uL (4.0-10.5) H 05/09/20 11:01 RBC 4.32 10^6/uL (3.72-5.28) 05/09/20 11:01 Hgb 13.4 g/dL (12.0-15.5) 05/09/20 11:01 Hct 37.8 % (36.0-47.0) 05/09/20 11:01 MCV 88 fl (80-97) 05/09/20 11:01 MCH 31.0 pg (27.0-33.4) 05/09/20 11:01 MCHC 35.5 g/dL (32.0-36.0) 05/09/20 11:01 RDW 14.0 % (11.5-14.0) 05/09/20 11:01 Plt Count 207 10^3/uL (150-450) 05/09/20 11:01 Urine Color YELLOW 05/09/20 09:26 Urine Appearance CLEAR 05/09/20 09:26 Urine pH 7.0 (5.0-9.0) 05/09/20 09:26 Ur Specific Hugo 1.008 05/09/20 09:26 Urine Protein NEGATIVE mg/dL (NEGATIVE) 05/09/20 09:26 Urine Glucose (UA) NEGATIVE mg/dL (NEGATIVE) 05/09/20 09:26 Urine Ketones NEGATIVE mg/dL (NEGATIVE) 05/09/20 09:26 Urine Blood SMALL (NEGATIVE) H 05/09/20 09:26 Urine Nitrite NEGATIVE (NEGATIVE) 05/09/20 09:26 Urine Bilirubin NEGATIVE (NEGATIVE) 05/09/20 09:26 Urine Urobilinogen NEGATIVE mg/dL (<2.0) 05/09/20 09:26 Ur Leukocyte Esterase NEGATIVE (NEGATIVE) 05/09/20 09:26 Urine Ascorbic Acid NEGATIVE (NEGATIVE) 05/09/20 09:26 Urine Opiates Screen NEGATIVE 05/09/20 09:26 Urine Methadone Screen NEGATIVE 05/09/20 09:26 Ur Barbiturates Screen NEGATIVE 05/09/20 09:26 Ur Phencyclidine Scrn NEGATIVE 05/09/20 09:26 Ur Amphetamines Screen NEGATIVE 05/09/20 09:26 U Benzodiazepines Scrn NEGATIVE 05/09/20 09:26 Urine Cocaine Screen NEGATIVE 05/09/20 09:26 U Marijuana (THC) Screen NEGATIVE 05/09/20 09:26 RPR NONREACTIVE (NONREACTIVE) 05/09/20 11:01 Blood Type A POSITIVE 05/09/20 11:01 Antibody Screen NEGATIVE 05/09/20 11:01 Plan Plan of Treatment: f/u at [facility] 4 wks Time Spent: Less than 30 Minutes
[2020-05-11] MEDS: FERROUS SULFATE 325 MG TABLET PO SCH (09:49)
[2020-05-11] MEDS: PRENATAL VITAMIN W DHA CAPSULE PO SCH (09:49)
[2020-05-11] MEDS: DOCUSATE SODIUM 100 MG CAPSULE PO SCH (09:51)
[2020-05-11] MEDS: FAMOTIDINE 20 MG TABLET PO SCH (09:51)
[2020-05-11] MEDS: SENNOSIDES/DOCUSATE 8.6-50 MG 1 EACH TABLET PO SCH (09:52)
[2020-05-11 10:47] LABS: ABSOLUTE EOSINOPHILS # (AUTO) 0.1 10^3/uL (0.0-0.6); ABSOLUTE LYMPHOCYTES (AUTO) 1.7 10^3/uL (0.5-4.7); ABSOLUTE MONOCYTES (AUTO) 0.3 10^3/uL (0.1-1.4); ABSOLUTE NEUT (AUTO) 6.8 10^3/uL (1.7-8.2); BASOPHILS % (AUTO) 0.1 % (0-2); EOSINOPHILS % (AUTO) 0.6 % (0-6); HEMATOCRIT 36.4 % (36.0-47.0); HEMOGLOBIN 12.5 g/dL (12.0-15.5); MEAN CORPUSCULAR HGB CONC 34.3 g/dL (32.0-36.0); MEAN CORPUSCULAR VOLUME 90 fl (80-97); MONOCYTES % (AUTO) 3.5 % (3-13); PLATELET COUNT 214 10^3/uL (150-450); RED BLOOD COUNT 4.04 10^6/uL (3.72-5.28); RED CELL DISTRIBUTION WIDTH 14.5 % (11.5-14.0); SEGMENTED NEUTROPHILS % (AUTO) 76.8 % (42-78); TOTAL CELLS COUNTED % (AUTO) 100 %; WHITE BLOOD COUNT 8.9 10^3/uL (4.0-10.5)
[2020-05-11 11:37] VITALS: BP 111/56
== END 2020-05-11 13:08 | disposition home or self-care (01) | DRG 807 ==
LOC: LC 09:20 → LR 10:10 → 2S 21:50 → LR 21:50 → 2N 23:25
PROVIDERS: ADMIT Obstetrics & Gynecology; ATTEND Obstetrics & Gynecology
PROC: 10E0XZZ Delivery of Products of Conception, External Approach (ICD-10-PCS; principal; 2020-05-09)
PROC: 0KQM0ZZ Repair Perineum Muscle, Open Approach (ICD-10-PCS; 2020-05-09)
DX: O69.1XX0 Labor and delivery complicated by cord around neck, with compression, not applicable or unspecified (principal); Z37.0 Single live birth; O70.1 Second degree perineal laceration during delivery; Z3A.40 40 weeks gestation of pregnancy
CPT/HCPCS: 1967; 36415; 80307; 81005; 85025; 85027; 86592; 86850; 86900; 86901; J2590; J2795; J3010; J3490